=== PATIENT | female | born 1975 | race Caucasian/White ===

== ENCOUNTER → 2018-02-08 | Day surgery (SDC) | payer MEDICARE, MEDICAID ==
[~2018-02-08] VITALS: Ht 165.1 cm; Wt 65.9 kg
[~2018-02-08] MED LIST: ACETAMINOPHEN 1000 MG/100 ML 100 ML IV SCH; BUPIVACAINE/EPINEPHRINE 0.5% PF 10 ML VIAL ONE; BUPR150T3 PO; CHLORHEXIDINE GLUCONATE 2 % 1 PACK (2 CLOTHS) TOPICAL PRN; DO NOT ADM ANY ANTICOAGULANT DRUGS PRN; GABA300C5 PO; KETOROLAC TROMETHAMINE 30 MG/ML (IVP) VIAL IV PUSH ONE; KETOROLAC TROMETHAMINE 30 MG/ML (IVP) VIAL ONE; LACTATED RINGER'S 1000 ML IV PRN; LEVO.075 PO; LIDOCAINE HCL 1% PF 5 ML SYRINGE OTHER ONE; MEPERIDINE HCL 25 MG/ML VIAL ONE; METOPROLOL TARTRATE 25 MG TAB PO PRN; MIDAZOLAM HCL 2 MG/2 ML VIAL ONE; MORP1TAB24 PO; MORPHINE SULFATE 4 MG/ML INJ IV PUSH PRN; ONDANSETRON HCL 4 MG/2 ML VIAL IV PUSH PRN; ONDANSETRON ODT 4 MG TAB PO PRN; POVIDONE IODINE 5% (ANTISEPSIS KIT) 4 APPLICATIONS EACH NARE PRN; PROPOFOL 200 MG/20 ML AMP IV ONE; ROPI.5 PO; SODIUM CHLORID 0.9% 500 ML IV PRN; SUCCINYLCHOLINE CHLORIDE 100 MG/5 ML SYRINGE IV PUSH ONE; oxyCODONE/ACETAMINOPHEN 5 MG/325 MG TAB PO PRN
--- NOTE | 2018-02-08 15:22 | PD.OP ---
cc: Aaron Tan MD Operative Report Date of Surgery: February 08, 2018 Preoperative Diagnosis: Large lipoma left lower back Postoperative Diagnosis: Large lipoma left lower back Procedure: Excision of 6.5 cm lipoma left lower back Anesthesia: General endotracheal Surgeon: Aaron Tan Family Services Worker(s): None Operation and Findings: Operative findings and procedure: The patient was found to have 6.5 cm lipoma in the hollow of the left lower back just to the left of the spinal column: And extending to the lateral side near the pelvis. No other abnormalities were noted. Patient is brought to the operating room after satisfactory general endotracheal anesthesia was obtained, the patient was placed prone on the operating table with proper padding. The left lower back was prepped and draped in the usual sterile fashion. 0.5% Marcaine with epinephrine was used to infiltrate the skin for local anesthesia. A transverse skin incision was made over the lipomatous area and carried out sharply through the subcutaneous tissue with cautery being used for hemostasis. Incision was deepened to the lipoma itself which was seen to be encapsulated. The lipoma was grasped with an Allis clamp after incising the capsule with the cautery. The lipoma was dissected free using the cautery and sent for permanent pathology, labeled lipoma left lower back; it was 6.5 cm in diameter. Hemostasis was strictly assured after which the subcutaneous tissue and dermis were closed with interrupted 3-0 Vicryl sutures and the skin closed with interrupted 4-0 PDS subcuticular stitches. Steri-Strips were applied and the patient was then awakened and taken from the operating room, in satisfactory condition, having tolerated the procedure problem. Estimated blood loss is less than 15 mL's. The instrument, sponge, needle counts reported as being correct 2 at the end of procedure. Aaron Tan MD February 08, 2018 15:22
[2018-02-08 16:30] VITALS: BP 97/67; PULSE 63; RESP 18; TEMP 96.8; O2SAT 97
== END | disposition home or self-care (01) ==
LOC: HSDC 11:02
PROVIDERS: ATTEND Surgery
DX: D17.1 Benign lipomatous neoplasm of skin and subcutaneous tissue of trunk (principal); G80.9 Cerebral palsy, unspecified; K59.00 Constipation, unspecified; M79.89 Other specified soft tissue disorders; E03.9 Hypothyroidism, unspecified; F41.8 Other specified anxiety disorders; N60.19 Diffuse cystic mastopathy of unspecified breast; R53.83 Other fatigue; E55.9 Vitamin D deficiency, unspecified; G47.00 Insomnia, unspecified
CPT/HCPCS: 00300; 21931; 88304; J0131; J0330; J1885; J2175; J2250; J3010; J7120